=== PATIENT | male | born 1980 ===

== ENCOUNTER 2018-07-15 12:07 | Emergency (ER) | payer MEDICAID, OTHER ==
[~2018-07-15] VITALS: Ht 193 cm; Wt 79.0 kg
[2018-07-15 12:23] VITALS: BP 125/70
[2018-07-15 16:27] LABS: BF WBC COUNT 69 /CU MM (0-1000); BFAPPEAR HAZY; BFCOLOR AMBER; BFVOLUME 9 ML; LYMPHOCYTES,BODY FLUID 12 %; MONOCYTES,BODY FLUID 76 %; NEUTROPHILS,BODY FLUID 12 %
[2018-07-15 16:28] LABS: BF RBC COUNT 7025 /CU MM; BODY FLUID CRYSTALS QT NONE SEEN (NONE SEEN); CRYSTAL ID, BODY FLD NONE SEEN (NONE SEEN)
== END 2018-07-15 17:24 | disposition home or self-care (01) ==
LOC: ER 12:07
DX: M70.21 Olecranon bursitis, right elbow (principal); Z88.0 Allergy status to penicillin
CPT/HCPCS: 20605; 89051; 89060; 99283; 99284